=== PATIENT | male | born 1995 | race Caucasian/White ===

== ENCOUNTER 2017-01-07 14:58 | Emergency (ER) | payer SELFPAY ==
[~2017-01-07] VITALS: Ht 187.9 cm; Wt 65.8 kg
== END 2017-01-07 16:11 | disposition home or self-care (01) ==
LOC: ED 14:58
DX: F19.10 Other psychoactive substance abuse, uncomplicated (principal); F17.200 Nicotine dependence, unspecified, uncomplicated; Z88.0 Allergy status to penicillin